=== PATIENT | female | born 1960 | race African-American/Black ===

== ENCOUNTER 2025-07-28 15:39 | Emergency (ER) | payer MEDICAID ==
[~2025-07-28] VITALS: Ht 165.1 cm; Wt 86.5 kg
[2025-07-28 15:53] VITALS: BP 153/89; PULSE 88; RESP 12; O2SAT 99
--- NOTE | 2025-07-28 18:47 | Physician Documentation ---
History of Present Illness ~ Chief Complaint: See Chief Complaint Stated Complaint: SEE CHIEF COMPLAINT Time Seen by MD: 18:32 Primary Medical Doctor: none HPI Patient presents to the emergency room for evaluation of sensation of foreign body around her anus. Symptoms has been going on for the past 10 days. She 1st noticed it when she wiped. She also feels like she is getting progressively circumcised. She states she knows it sounds unusual but that is what it feels like. [place] at bedside Medication Reconciliation Allergies: Coded Allergies: No Known Allergies (Unverified , 07/28/25) Review of Systems ROS All review of systems negative except as per HPI Physical Exam Vital Signs: Temperature: 98.1, Source: Temporal, Heart Rate: 88, Respiratory Rate: 12, BP: 153/89, Pulse Oximetry: 99, Weight: 86.500 Oxygen Flow Rate: 0 Physical Exam General: Patient is awake, alert, oriented x4 in no acute distress and well appearing.~ Head: Normocephalic and atraumatic. Eyes: Conjunctival normal. EOMI. PERRL. ENT: Mucous membranes moist. Neck: Supple, trachea is midline. Chest: Clear to auscultation bilaterally without rales, rhonchi, or wheezes. There is no accessory muscle use or retractions. Cardiac: RRR without murmurs, gallops, or rubs. : Normal external female anatomy without odor or discharge without masses or erythema. Progress Results/Orders Results/Orders Orders - BILLY LOMELI MD Pelvis,Limited 1-2 Views (07/28/25 18:55) Completed Orders - BILLY LOMELI MD Pelvis,Limited 1-2 Views (07/28/25 18:55) Vital Signs 07/28/25 15:53 Temp 98.1 Pulse 88 Resp 12 B/P (MAP) 153/89 Pulse Ox 99 O2 Flow Rate 0 Medical Decision Making Additional information obtaine: N/A Findings Patient presents to the emergency room with feeling of foreign body to her anus area and stating that she feels like parts of her genitals are missing. Differentials include but are not limited to psychosis, foreign body, herpes outbreak. Physical exam is reassuring. I strongly suspect psychogenic etiology. She is not gravely disabled. He had not feel advanced imaging or labs are necessary Urinary Diff Dx:Considerations: Include: AAA, , Aortic dissection, Appendicitis, Bowel obstruction, Cholelithiasis, Choleangitis, DJD, Ectopic , Hepatitis, HNP, Impaction, Intrauterine , Musculoskeletal pain, Ovarian torsion, Pancreatitis, PID, Post-Op complication, Pyelonephritis, Renal failure, Strain, Urinary Obstruction, Urolithiasis, Urinary retention, UTI, Vaginitis, Other Genital Diff Dx:Considerations: Include: -Complete, - Incomplete, -Inevitable, Ablortion-Missed, -Threatened, Abruptio placentae, Bartholin abscess, Bartholin cyst, Blood loss anemia, Constipation, Cervicitis, Dsymenorrhea, Ectopic , Foreign body, Hormonal, Hidradenitis suppurativa, Intrauterine , Menorrhagia, Menometrorrhagia, Menstrual bleeding, Myomatous uterus, Perianal abscess, Physiologic discharge, Pinworms, PID, Placenta previa, , Precipitous Hct, Trauma, UTI, Vaginitis(osis)-Atrophic, Vaginitis, Vaginitis(osis)-Bacterial, Vaginitis(osis)- Candidal, Vaginitis(osis)-Contact, Vaginitis(osis)-Herpes, Vaginitis(osis)- Trich., Other Departure Disposition: 01 HOME / SELF CARE / HOMELESS Impression: Primary Impression: Examination, medical, general Condition: Stable Discharge Instructions: General Discharge Instructions Referrals: NO PRIMARY CARE PROVIDER (PCP) Signature Scribe Signature: No scribe Attestation: The note accurately reflects work and decisions made by me.Billy Lomeli MD 07/28/25 20:02 BILLY LOMELI MD Jul 28, 2025 18:47
--- NOTE | 2025-07-28 19:19 | RADIOLOGY REPORT ---
EXAM: DI PELVIS,LIMITED 1-2 VIEWS INDICATION: possible FB (wire) TECHNIQUE: 1 views of the pelvis COMPARISON: None FINDINGS/IMPRESSION: No radiographic evidence of an acute osseous abnormality. There is no acute fracture, osseous malalignment, or aggressive focal osseous lesion. Nonspecific, nonobstructive bowel gas pattern indeterminate curvilinear density in the left upper quadrant near the left lower ribcage. Correlate with physical exam
[2025-07-28 20:06] VITALS: TEMP 98.1
== END 2025-07-28 20:08 | disposition home or self-care (01) ==
LOC: ER 15:41
DX: Z00.00 Encounter for general adult medical examination without abnormal findings (principal)
CPT/HCPCS: 72170; 99283